=== PATIENT | female | born 1950 | race African-American/Black ===

== ENCOUNTER 2017-06-01 10:45 | Emergency (ER) | payer MEDICARE ==
[2017-06-01] MEDS ORDERED: methylPREDNISolone Sod Succ/PF 125 MG/2 ML VIAL ONE (11:01)
== END 2017-06-01 11:22 | disposition home or self-care (01) ==
LOC: NAV ERS 10:45
DX: M19.071 Primary osteoarthritis, right ankle and foot (principal); K21.9 Gastro-esophageal reflux disease without esophagitis; J45.909 Unspecified asthma, uncomplicated; Z87.891 Personal history of nicotine dependence; Z79.82 Long term (current) use of aspirin; Z79.899 Other long term (current) drug therapy
CPT/HCPCS: 96372; J2930